=== PATIENT | female | born 1960 | race Caucasian/White ===

== ENCOUNTER 2025-03-28 15:50 | Inpatient (IN) | payer OTHER ==
[~2025-03-28] VITALS: Ht 157.4 cm; Wt 64.4 kg
[2025-03-28] MEDS ORDERED: CHAIR CUSHION DEVICE ONE (16:58)
[2025-03-28] MEDS ORDERED: CONSTULOSE10 GM/151 PO (18:01)
[2025-03-28] MEDS ORDERED: LEVOTHYROXINE75 MCG PO ×2 (18:03→18:04)
[2025-03-28] MEDS ORDERED: LOSARTAN POTASS25 M1 PO (18:05)
[2025-03-28] MEDS ORDERED: MELATONIN 10 M1 EACH PO (18:06)
[2025-03-28] MEDS ORDERED: LOPRESSOR25 MG PO (18:07)
[2025-03-28] MEDS ORDERED: MILK OF MA400 MG/53 PO (18:09)
[2025-03-28] MEDS ORDERED: REMERON15 M2 PO (18:10)
[2025-03-28] MEDS ORDERED: MYRBETRIQ50 M1 PO (18:10)
[2025-03-28] MEDS ORDERED: RIVASTIGMINE TAR3 M1 PO (18:11)
[2025-03-28] MEDS ORDERED: ROSUVASTATIN CA40 MG PO (18:12)
[2025-03-28] MEDS ORDERED: TYLENOL EXTRA500 MG PO (18:14)
[2025-03-28] MEDS ORDERED: XARE20MG PO (18:22)
[2025-03-28] MEDS ORDERED: CLOPIDOGREL75 MG PO (18:35)
[2025-03-28] MEDS ORDERED: ASPIRIN CHEWABL81 MG PO (18:35)
[2025-03-28] MEDS ORDERED: CYMBALTA60 MG PO ×2 (18:36→18:46)
[2025-03-28] MEDS ORDERED: DEPAKOTE SPRIN125 MG PO (18:37)
[2025-03-28] MEDS ORDERED: HUMALOG 751 UNIT/0.0 SQ (18:38)
[2025-03-28] MEDS ORDERED: ACETAMINOPHEN 500 MG TAB PO PRN (18:50)
[2025-03-28] MEDS ORDERED: MG-AL HYDROXIDE/SIMETICONE 30 ML UDC PO PRN (19:00)
[2025-03-28] MEDS ORDERED: Menthol/Zinc Oxide 4 GM THIN T PRN (19:15)
[2025-03-28 20:00] VITALS: BP 125/46
[2025-03-28] MEDS ORDERED: Water, Sterile 10 ML VIAL IM PRN (20:05)
[2025-03-28] MEDS ORDERED: LORazepam 1 MG TAB PO PRN (20:05)
[2025-03-28] MEDS ORDERED: LORazepam 2 MG/ML VIAL IM PRN (20:05)
[2025-03-28] MEDS ORDERED: hydrOXYzine pamoate 25 MG CAP PO PRN (20:10)
[2025-03-28] MEDS ORDERED: hydrOXYzine hydrochloride 50 MG/ML VIAL IM PRN (20:10)
[2025-03-28] MEDS ORDERED: Ziprasidone Mesylate 20 MG VIAL IM PRN (20:10)
[2025-03-28] MEDS ORDERED: Magnesium Hydroxide 30 ML UDC PO PRN (20:25)
[2025-03-28] MEDS ORDERED: CEFDINIR 300 MG CAP PO SCH (20:25)
[2025-03-28] MEDS ORDERED: DULoxetine Hydrochloride 60 MG CAP PO SCH (21:00)
[2025-03-28] MEDS ORDERED: Rosuvastatin Calcium 10 MG TABLET PO SCH (21:00)
[2025-03-28] MEDS ORDERED: Melatonin 5 MG TABLET PO SCH (21:00)
[2025-03-28] MEDS ORDERED: Rivastigmine Tartrate 3 MG CAP PO SCH (21:00)
[2025-03-28] MEDS ORDERED: DIVALPROEX SODIUM 125 MG CAP PO SCH (21:20)
[2025-03-29 06:30] LABS: BASO # 0.1 10*3/uL (0.0-0.1); EOS # 0.1 10*3/uL (0.0-0.4); EOS % 2.5 % (1.0-4.0); HEMATOCRIT 35.6 % (37.0-47.0); MEAN CORPUSCULAR HGB CONC 30.9 g/dl (33.0-37.0); MEAN PLATELET VOLUME 9.9 fl (9.6-12.3); MONO # 0.6 10*3/uL (0.1-1.0); MONO % 10.7 % (3.0-9.0); NEUT # 2.6 10*3/uL (2.3-7.9); NEUT % 50.6 % (47.0-73.0); PLATELET COUNT AUTOMATED 181 10*3/uL (130-400); RED BLOOD COUNT 3.67 10*6/uL (4.10-5.10); WHITE BLOOD COUNT 5.1 10*3/uL (4.8-10.8)
[2025-03-29 06:57] LABS: ALKALINE PHOSPHATASE 55 U/L (46-116); BUN 10 mg/dl (9-23); CHLORIDE 107 mmol/L (98-107); CHOLESTEROL 147 mg/dL (<200); LDL CHOLESTEROL 80 mg/dL (9-159); POTASSIUM 4.1 mmol/L (3.4-5.1); SGPT/ALT 8 U/L (5-49); TOTAL PROTEIN 5.7 gm/dL (6.0-8.0); TRIGLYCERIDES 144 mg/dl (<150); VITAMIN D, 25-HYDROXY 31.6 ng/mL (30-100)
[2025-03-29] MEDS ORDERED: Levothyroxine Sodium 75 MCG TAB PO SCH (07:00)
[2025-03-29 08:00] VITALS: BP 121/59
[2025-03-29] MEDS ORDERED: Losartan Potassium 25 MG TAB PO SCH (09:00)
[2025-03-29] MEDS ORDERED: Metoprolol Tartrate 25 MG TAB PO SCH (09:00)
[2025-03-29] MEDS ORDERED: ASPIRIN, CHEWABLE 81 MG TAB PO SCH (09:00)
[2025-03-29] MEDS ORDERED: RIVAROXABAN 20 MG TAB PO SCH (09:00)
[2025-03-29] MEDS ORDERED: Clopidogrel Hydrogen Sulfate 75 MG TAB PO SCH (10:00)
[2025-03-29] MEDS ORDERED: LACTULOSE 20 GM/30 ML UDC PO SCH (10:00)
[2025-03-29] MEDS ORDERED: NYSTATIN 15 GM BOT T SCH (11:05)
[2025-03-29] MEDS ORDERED: DEXTROSE 50% 25 GM/50 ML VIAL IV PRN (17:25)
[2025-03-29 20:00] VITALS: BP 113/86
[2025-03-29] MEDS ORDERED: REG INSULIN SC SCH (21:00)
[2025-03-29] MEDS ORDERED: INSULIN NPH HUM SC SCH (21:00)
[2025-03-29] MEDS ORDERED: INSULIN LISPRO 1 UNIT/0.01 ML SQ SCH (22:00)
[2025-03-30 00:17] VITALS: BP 127/70
[2025-03-30] MEDS ORDERED: Levothyroxine Sodium 75 MCG TAB PO SCH (07:00)
[2025-03-30 08:03] VITALS: BP 174/74
[2025-03-30] MEDS ORDERED: DIVALPROEX SODIUM 125 MG CAP PO SCH (13:00)
[2025-03-30 20:00] VITALS: BP 143/45
[2025-03-31 09:00] VITALS: BP 110/81
[2025-03-31] MEDS ORDERED: Rivastigmine Tartrate 1.5 MG CAP PO SCH (09:00)
[2025-03-31 20:00] VITALS: BP 103/67
[2025-04-01 06:41] LABS: BASO # 0.1 10*3/uL (0.0-0.1); BASO % 0.7 % (0.0-1.0); EOS # 0.1 10*3/uL (0.0-0.4); HEMATOCRIT 36.7 % (37.0-47.0); MEAN CELL VOLUME 95.3 fl (81.0-99.0); MEAN CORPUSCULAR HGB 30.1 pg (27.0-31.0); MEAN CORPUSCULAR HGB CONC 31.6 g/dl (33.0-37.0); MEAN PLATELET VOLUME 9.6 fl (9.6-12.3); MONO # 0.7 10*3/uL (0.1-1.0); MONO % 9.9 % (3.0-9.0); NEUT % 57.2 % (47.0-73.0); PLATELET COUNT AUTOMATED 184 10*3/uL (130-400); RED BLOOD COUNT 3.85 10*6/uL (4.10-5.10); RED CELL DISTRI WIDTH 13.9 % (0-14.5); WHITE BLOOD COUNT 6.9 10*3/uL (4.8-10.8)
[2025-04-01 20:00] VITALS: BP 146/58
[2025-04-02 08:00] VITALS: BP 125/50
[2025-04-02 20:00] VITALS: BP 139/58
[2025-04-03 07:43] VITALS: BP 125/45
[2025-04-03] MEDS ORDERED: Vitamin D 1,000 IU TAB (25 MCG) PO SCH (12:30)
[2025-04-03] MEDS ORDERED: CYANOCOBALAMIN 1,000 MCG/ML VIAL IM SCH (12:30)
[2025-04-03] MEDS ORDERED: DIVALPROEX SODIUM 125 MG CAP PO SCH (13:00)
[2025-04-03 20:00] VITALS: BP 130/85
[2025-04-03] MEDS ORDERED: Rivastigmine Tartrate 3 MG CAP PO SCH (21:00)
[2025-04-04 08:24] VITALS: BP 116/44
[2025-04-04 20:00] VITALS: BP 148/74
[2025-04-05 08:00] VITALS: BP 171/70
[2025-04-05 20:00] VITALS: BP 150/75
[2025-04-06 08:00] VITALS: BP 130/40
[2025-04-06 20:00] VITALS: BP 130/40
[2025-04-06] MEDS ORDERED: RAMELTEON 8 MG TAB PO SCH (21:00)
[2025-04-07 08:12] VITALS: BP 128/59
[2025-04-07 20:00] VITALS: BP 108/78
[2025-04-08 07:08] LABS: BASO # 0.1 10*3/uL (0.0-0.1); BASO % 0.9 % (0.0-1.0); EOS # 0.1 10*3/uL (0.0-0.4); HEMATOCRIT 38.1 % (37.0-47.0); MEAN CELL VOLUME 93.6 fl (81.0-99.0); MEAN PLATELET VOLUME 9.9 fl (9.6-12.3); MONO # 0.6 10*3/uL (0.1-1.0); MONO % 8.3 % (3.0-9.0); NEUT # 3.7 10*3/uL (2.3-7.9); NEUT % 53.2 % (47.0-73.0); PLATELET COUNT AUTOMATED 187 10*3/uL (130-400); RED BLOOD COUNT 4.07 10*6/uL (4.10-5.10); RED CELL DISTRI WIDTH 13.6 % (0-14.5); WHITE BLOOD COUNT 6.9 10*3/uL (4.8-10.8)
[2025-04-08 07:39] LABS: ALKALINE PHOSPHATASE 63 U/L (46-116); BUN 12 mg/dl (9-23); CHLORIDE 103 mmol/L (98-107); POTASSIUM 4.2 mmol/L (3.4-5.1); SGPT/ALT 12 U/L (5-49); TOTAL PROTEIN 6.1 gm/dL (6.0-8.0); VALPROIC ACID (DEPAKENE) 89.3 ug/ml (50-100)
[2025-04-08 08:00] VITALS: BP 136/53
[2025-04-08 20:00] VITALS: BP 117/57
[2025-04-08] MEDS ORDERED: Memantine Hydrochloride 5 MG TAB PO SCH (21:00)
[2025-04-09 08:00] VITALS: BP 100/52
[2025-04-09] MEDS ORDERED: Memantine Hydrochloride 5 MG TAB PO SCH (09:00)
[2025-04-09 16:38] VITALS: BP 107/47
[2025-04-09 20:00] VITALS: BP 109/42
[2025-04-10 07:44] VITALS: BP 109/48
[2025-04-10] MEDS ORDERED: HUMULIN 70100 UNIT/1 SC (08:55)
[2025-04-10] MEDS ORDERED: NAMENDA-5 PO (11:19)
[2025-04-10] MEDS ORDERED: DIVALPROEX SOD125 M1 PO (11:19)
[2025-04-10] MEDS ORDERED: RIVASTIGMINE TAR3 M1 PO (11:19)
[2025-04-10] MEDS ORDERED: HUMULIN 70100 UNIT/2 SQ (11:38)
[2025-04-10] MEDS ORDERED: DIVALPROEX SODIUM 125 MG CAP PO SCH (13:00)
[2025-04-10] MEDS ORDERED: Melatonin 5 MG TABLET PO SCH (21:00)
== END 2025-04-10 17:41 | disposition home or self-care (01) | DRG 883 ==
LOC: 3N 15:50
PROVIDERS: Counselor Professional; Psychiatry & Neurology Psychiatry; ADMIT Psychiatry & Neurology Psychiatry; ATTEND Psychiatry & Neurology Psychiatry
PROC: GZHZZZZ Group Psychotherapy (ICD-10-PCS; principal; 2025-03-30)
PROC: GZ51ZZZ Individual Psychotherapy, Behavioral (ICD-10-PCS; 2025-03-30)
DX: F63.81 Intermittent explosive disorder (principal); N39.0 Urinary tract infection, site not specified; F33.9 Major depressive disorder, recurrent, unspecified; R79.89 Other specified abnormal findings of blood chemistry; D64.9 Anemia, unspecified; E13.69 Other specified diabetes mellitus with other specified complication; I10 Essential (primary) hypertension; E78.5 Hyperlipidemia, unspecified; G30.9 Alzheimer's disease, unspecified; F02.80 Dementia in other diseases classified elsewhere, unspecified severity, without behavioral disturbance, psychotic disturbance, mood disturbance, and anxiety; I25.10 Atherosclerotic heart disease of native coronary artery without angina pectoris; M79.89 Other specified soft tissue disorders; G47.00 Insomnia, unspecified; K21.9 Gastro-esophageal reflux disease without esophagitis; Z96.1 Presence of intraocular lens; J45.909 Unspecified asthma, uncomplicated; E03.9 Hypothyroidism, unspecified; I25.2 Old myocardial infarction; Z86.73 Personal history of transient ischemic attack (TIA), and cerebral infarction without residual deficits; Z98.42 Cataract extraction status, left eye; Z98.41 Cataract extraction status, right eye; Z87.891 Personal history of nicotine dependence; Z91.030 Bee allergy status; Z88.0 Allergy status to penicillin; Z79.899 Other long term (current) drug therapy; Z95.1 Presence of aortocoronary bypass graft